=== PATIENT | male | born 1995 | race Two or more races ===

== ENCOUNTER 2016-07-24 15:23 | Outpatient (CLI) | payer BC ==
[2016-07-24 15:51] LABS: BASOPHILS # (AUTO) 0.1 /CMM (0.0-0.2); BASOPHILS % (AUTO) 0.6 % (0.0-2.0); DIFF TOTAL % 100 %; EOSINOPHILS # (AUTO) 0.4 /CMM (0.0-0.7); EOSINOPHILS % (AUTO) 4.4 % (0.0-6.0); HEMATOCRIT 45 % (39-51); HEMOGLOBIN 15.2 g/dL (13.5-17.5); LYMPHOCYTES # (AUTO) 3.2 /CMM (0.8-4.8); LYMPHOCYTES % (AUTO) 39.5 % (20.0-44.0); MEAN CORPUSCULAR HEMOGLOBIN 28 PG (26.0-33.0); MEAN CORPUSCULAR HGB CONC 34 g/dl (31.0-36.0); MEAN CORPUSCULAR VOLUME 83 fL (80-96); MONOCYTES # (AUTO) 0.5 /CMM (0.1-1.30); MONOCYTES % (AUTO) 6.7 % (2.0-12.0); NEUTROPHILS % (AUTO) 48.8 % (43.0-81.0); PLATELET COUNT (AUTO) 304 /CMM (150-450); RED BLOOD CELL COUNT(AUTO) 5.39 MIL/uL (4.5-6.0); WHITE BLOOD COUNT (AUTO) 8.1 K/uL (4.3-11.0)
[2016-07-24 16:05] LABS: ADD UA MICROSCOPIC NO; KETONES,URINE NEGATIVE (NEGATIVE); LEUKOCYTE ESTERASE ,URINE NEGATIVE (NEGATIVE)
[2016-07-24 16:10] LABS: ALBUMIN 3.9 g/dL (3.4-5.0); BILIRUBIN,TOTAL 0.3 mg/dL (0.2-1.0); CALCIUM, SERUM 8.7 mg/dL (8.5-10.1); POTASSIUM 3.7 mmol/L (3.5-5.1); TOTAL PROTEIN, SERUM 7.3 g/dL (6.4-8.2)
[2016-07-24 16:14] LABS: THYROID STIMULATING HORMONE 2.285 uIU/mL (0.358-3.74)
[2016-07-25 08:09] LABS: VIT D, 25-HYDROXY 17.1 ng/mL (30.0-100.0)
[2016-07-25 16:34] LABS: IMMUNOGLOBULIN E,TOTAL 307 IU/mL (0-100)
[2016-07-28 21:10] LABS: *F002-IGE MILK <0.10 kU/L (Class 0); *F004-IGE WHEAT 0.57 kU/L (Class II); *F008-IGE CORN 0.66 kU/L (Class II); *F026-IGE PORK <0.10 kU/L (Class 0); *F027-IGE BEEF <0.10 kU/L (Class 0); *F093-IGE CHOCOLATE/CACAO <0.10 kU/L (Class 0); *FX02-IGE FOOD MIX (SEAFOOD) Negative (.)
== END 2016-07-24 23:59 | disposition home or self-care (01) ==
LOC: LAB 15:23
PROVIDERS: ATTEND Legal Medicine
DX: J30.9 Allergic rhinitis, unspecified (principal)
CPT/HCPCS: 36415; 80053-TC; 80061-TC; 81000-TC; 82306; 82728-TC; 82746; 82785; 83540-TC; 84443-TC; 85025-TC; 86003

== ENCOUNTER 2017-11-02 15:27 | Emergency (ER) | payer BC ==
[~2017-11-02] VITALS: Ht 165.1 cm; Wt 77.6 kg
[2017-11-02 15:35] VITALS: BP 170/90
[2017-11-02] MEDS ORDERED: IBUPROFEN 600 MG TABLET PO ONE ×2 (16:54→17:00)
[2017-11-02] MEDS ORDERED: ONDANSETRON 4 MG TAB.RAPDIS ONE (16:54)
[2017-11-02] MEDS ORDERED: ONDANSETRON 4 MG TAB.RAPDIS PO ONE (17:00)
== END 2017-11-02 16:59 | disposition home or self-care (01) ==
LOC: ER 15:28
DX: R55 Syncope and collapse (principal); R42 Dizziness and giddiness; R51 Headache; X50.0XXA Overexertion from strenuous movement or load, initial encounter; Y93.89 Activity, other specified; Y92.89 Other specified places as the place of occurrence of the external cause; Y99.0 Civilian activity done for income or pay
CPT/HCPCS: 82962-TC; A4606; Q0162; Z7610

== ENCOUNTER 2017-12-20 13:39 | Emergency (ER) | payer OTHER, BC ==
[~2017-12-20] VITALS: Ht 167.6 cm; Wt 99.8 kg
[2017-12-20 13:41] VITALS: BP 148/82
== END 2017-12-20 14:13 | disposition home or self-care (01) ==
LOC: ER 13:42
DX: S51.851A Open bite of right forearm, initial encounter (principal); W50.3XXA Accidental bite by another person, initial encounter; Y93.89 Activity, other specified; Y92.89 Other specified places as the place of occurrence of the external cause; Y99.8 Other external cause status
CPT/HCPCS: 99282; A4606; Z7610